=== PATIENT | female | born 1990 | race Caucasian/White ===

== ENCOUNTER 2018-04-09 03:33 | Emergency (ER) | payer BC, OTHER ==
[2018-04-09 03:40] VITALS: BP 138/103; PULSE 84; RESP 18; TEMP 98.3
[2018-04-09] MEDS ORDERED: PROPARACAINE 0.5% OPHTH DROPS 15 ML BTL LEFT EYE STA (03:56)
--- NOTE | 2018-04-09 07:17 | ED ---
Eye Problem HPI - General Chief complaint: ENT Stated complaint: Eye Pain Source: patient Mode of arrival: ambulatory Limitations: no limitations - History of Present Illness MD chief complaint: eye pain -: hour(s) Onset Description: gradual Location: left eye Place: work If Injury: none Eye Symptoms: foreign body sensation Severity: moderate If Pain, Quality: sharp Consistency: constant Associated Symptoms: none Treatments Prior to Arrival: none - Related Data Patient Tetanus UTD: Yes Home Medications Medication Instructions Recorded Confirmed [id number] 1 tab PO Q4HR PRN 11/03/15 11/03/15 [Excedrin] Fluticasone Nasal [place] [Flonase 1 spray EA NOSTRIL DAILY 11/03/15 11/03/15 Nasal [place]] Loratadine [Claritin] 10 mg PO DAILY 11/03/15 11/03/15 Multivitamins, Thera [Multivitamin] 1 tab PO DAILY 11/03/15 11/03/15 Allergies Allergy/AdvReac Type Severity Reaction Status Date / Time Pepper Allergy Swelling Verified 04/09/18 03:40 Review of Systems ROS Statement: Those systems with pertinent positive or pertinent negative responses have been documented in the HPI. ROS Other: All systems not noted in ROS Statement are negative. Past Medical History Past Medical History: Eye Disorder Additional Past Medical History / Comment(s): retinal tears migraines History of Any Multi-Drug Resistant Organisms: None Reported Past Surgical History: No Surgical Hx Reported Additional Past Surgical History / Comment(s): retinal surg Past Psychological History: No Psychological Hx Reported Smoking Status: Never smoker Past Alcohol Use History: None Reported Past Drug Use History: None Reported General Exam Limitations: no limitations General appearance: alert, in no apparent distress Head exam: Present: atraumatic, normocephalic Eye exam: Present: PERRL, EOMI, conjunctival injection. Absent: scleral icterus Expanded Eyelids: Normal Inspection: Right, Stye: Left Pupils: Regular, Round: Bilateral, Reactive: Bilateral Sclera/Conjunctival: Normal Inspection: Right, Injection: Left Anterior chamber: Normal Inspection: Left IOP (L) in mmH IOP measured with: other ([facility]) ENT exam: Present: normal oropharynx Skin exam: Present: warm, dry, intact, normal color. Absent: rash Course Vital Signs 04/09/18 04/09/18 03:36 07:39 Temperature 98.3 F 98.3 F Pulse Rate 84 84 Respiratory 18 18 Rate Blood Pressure 138/103 138/103 O2 Sat by Pulse 100 100 Oximetry Medical Decision Making - Medical Decision Making Patient is 27-year-old woman with left eye discomfort, without any visual acuity change. She is found to have stye. Discussed appropriate further care and follow-up. Started on antibiotic here. She understands she is not to wear contact lenses until cleared by the follow- up physician. Fluorescein stain does not reveal any corneal ulcer. Disposition Clinical Impression: Stye Disposition: HOME SELF-CARE Condition: Good Instructions: Stye (ED) Is patient prescribed a controlled substance at d/c from ED?: No Referrals: None,Stated [Primary Care Provider] - 1-2 days Joshua Carbajal MD [STAFF PHYSICIAN] - 1-2 days
[2018-04-09] MEDS ORDERED: traMADol 50 MG STARTER PACK 3 TAB BTL PO STA (07:19)
[2018-04-09] MEDS ORDERED: ERYTHROMYCIN 5 MG/GM OPHTH OINT 3.5 GM TUBE LEFT EYE SCH (07:30)
== END 2018-04-09 07:39 | disposition home or self-care (01) ==
LOC: EC 03:33
DX: H00.016 Hordeolum externum left eye, unspecified eyelid (principal); Z79.899 Other long term (current) drug therapy; Z91.018 Allergy to other foods
CPT/HCPCS: 99283

== ENCOUNTER → 2019-07-06 | Outpatient (CLI) | payer BC ==
--- NOTE | 2019-07-06 13:20 | USB ---
Reason for exam: clinical finding. Indicated problem(s): lump or thickening in the left breast. Physical Findings: Nurse Summary: Patient complains of left breast lump intermittent x 10 years (nurse mj). US Breast LT Left complete breast ultrasound includes all four quadrants, the retroareolar region and axilla. Finding demonstrates no cystic or solid lesion seen. No suspicious sonographic finding. Dense tisue throughout. These results were verbally communicated with the patient and result sheet given to the patient on 07/06/19. ASSESSMENT: Negative, BI-RAD 1 RECOMMENDATION: Routine screening mammogram of both breasts at age 38. (or sooner if clinically indicated) Manage patient on a clinical basis.
== END | disposition home or self-care (01) ==
LOC: RADUSWWP 11:41
PROVIDERS: ATTEND Family Medicine
DX: N63.21 Unspecified lump in the left breast, upper outer quadrant (principal)

== ENCOUNTER 2022-08-02 07:44 | Day surgery (SDC) | payer BC ==
--- NOTE | 2022-08-02 07:42 | P.GSHP ---
History of Present Illness H&P Date: 08/02/22 Chief Complaint: Incarcerated ventral hernia 31-year-old female here today for elective repair incarcerated ventral hernia. Mild discomfort there. Increasing in size. BMI 25. Past Medical History Past Medical History: Eye Disorder, GERD/Reflux, Osteoarthritis (OA) Additional Past Medical History / Comment(s): retinal tears left-had lasering, migraines History of Any Multi-Drug Resistant Organisms: None Reported Past Surgical History: No Surgical Hx Reported Additional Past Surgical History / Comment(s): retinal surg Additional Past Anesthesia/Blood Transfusion Reaction / Comment(s): no family problems w/anesthesia Smoking Status: Never smoker - Past Family History Mother Family Medical History: Deep Vein Thrombosis (DVT) Additional Family Medical History / Comment(s): ITP Father Family Medical History: Deep Vein Thrombosis (DVT) Medications and Allergies Home Medications Medication Instructions Recorded Confirmed Type [id number] 1 tab PO Q4HR PRN 11/03/15 07/27/22 History [Excedrin] Fluticasone Nasal [place] [Flonase 1 spray EA NOSTRIL DAILY 11/03/15 07/27/22 History Nasal [place]] Albuterol Inhaler [Ventolin Hfa 1 - 2 puff INHALATION Q6H PRN 07/27/22 07/27/22 History Inhaler] Erenumab-Aooe [Aimovig 140 mg SQ Q30D 07/27/22 07/27/22 History Autoinjector] Topiramate [Topamax] 50 mg PO BID 07/27/22 07/27/22 History Allergies Allergy/AdvReac Type Severity Reaction Status Date / Time pimentel pepper Allergy throat Uncoded 07/27/22 12:58 irritation, skin irritation, swelling Surgical - Exam Physical exam: General: Well-developed, well-nourished HEENT: Normocephalic, sclerae nonicteric Abdomen: Nontender, nondistended, incarcerated ventral hernia Extremities: No edema Neuro: Alert and oriented Assessment and Plan (1) Incarcerated ventral hernia Narrative/Plan: 31-year-old female with incarcerated ventral hernia. We'll proceed with open repair incarcerated ventral hernia with possible mesh. Risks of bleeding, infection, recurrence, bladder and bowel injury, numbness, nerve injury were discussed with the patient. The patient understands and wishes to proceed. Status: Acute Code(s): K43.6 - OTHER AND UNSP VENTRAL HERNIA WITH OBSTRUCTION, W/O GANGRENE SNOMED Code(s): 942732448
[~2022-08-02 07:44] MED LIST: ACETAMINOPHEN TAB 500 MG TAB PO PRN; HEPARIN SODIUM,PORCINE/PF 5,000 UNIT/0.5 ML SYRINGE SQ PRN
[2022-08-02] MEDS ORDERED: DEXAMETHASONE SOD PHOSPHATE 4 MG/ML 1 ML VIAL IV ONE (07:52)
[2022-08-02] MEDS ORDERED: ONDANSETRON 4 MG/2 ML VIAL IVP ONE ×2 (07:52→10:12)
[2022-08-02] MEDS ORDERED: HYDROmorphone 0.5 MG/0.5 ML SYRINGE IVP PRN (07:52)
[2022-08-02] MEDS ORDERED: SCOPOLAMINE 1 MG/72 HR PATCH TRANSDERM ONE (07:52)
[2022-08-02] MEDS ORDERED: MIDAZOLAM 2 MG/2 ML VIAL IV PRN (07:52)
[2022-08-02] MEDS: LACTATED RINGERS 1,000 ML IV SCH ×2 (08:26→10:25)
[2022-08-02] MEDS ORDERED: ROCURONIUM 10 MG/ML (5 ML VIAL) IV ONE (09:09)
[2022-08-02] MEDS ORDERED: MIDAZOLAM 2 MG/2 ML VIAL ONE (09:09)
[2022-08-02] MEDS ORDERED: PROPOFOL 10 MG/ML 20 ML VIAL IV ONE (09:09)
[2022-08-02] MEDS ORDERED: LIDOCAINE 2% INJ 20 MG/ML (2 ML VIAL) ONE (09:09)
[2022-08-02] MEDS ORDERED: fentaNYL (PF) 50 MCG/ML 2 ML AMP ONE (09:09)
[2022-08-02] MEDS ORDERED: GLYCOPYRROLATE 0.2 MG/ML 2 ML VIAL ONE (09:09)
[2022-08-02] MEDS ORDERED: SUCCINYLCHOLINE CHLORIDE 200 MG/10 ML VIAL IV ONE (09:09)
[2022-08-02] MEDS ORDERED: NEOSTIGMINE 1 MG/ML 10 ML VIAL ONE (09:09)
[2022-08-02] MEDS ORDERED: BUPIVACAINE (PF) 0.25% 30 ML VIAL SQ ONE ×2 (09:29→09:52)
[2022-08-02 10:13] VITALS: RESP 16; TEMP 96.8
[2022-08-02] MEDS ORDERED: traMADol 50 MG TAB PO STA (10:43)
[2022-08-02] MEDS ORDERED: traMADol 50 MG TAB PO ONE (11:05)
[2022-08-02 11:25] VITALS: PULSE 59
[2022-08-02 11:27] VITALS: BP 111/73
--- NOTE | 2022-08-02 11:54 | P.OP ---
Date of Procedure: 08/02/22 Procedure(s) Performed: PREOPERATIVE DIAGNOSIS: Incarcerated ventral hernia POSTOPERATIVE DIAGNOSIS: Same PROCEDURE: Open repair incarcerated ventral hernia SURGEON: Dr. Kingston ANESTHESIA: General OPERATIVE PROCEDURE DETAILS: Patient placed on the operating table in the supine position. Abdomen was prepped and draped in usual sterile fashion. A vertical incision was then made superior to the umbilicus. Dissection through the subcutaneous tissues took place using electrocautery. The patient had a sin gle incarcerated hernia in the supraumbilical location. The defect was probably 2-3 cm superior to the umbilicus. The defect was quite small measuring only 4-5 mm in diameter. The fat was removed using electrocautery. The defect was closed using 3 separate interrupted 0 Ethibond sutures. No mesh was utilized. The subcutaneous tissues were closed using 3-0 Vicryl sutures. The skin was closed using a running 4-0 Monocryl suture. Skin glue and sterile dressings were applied. HERNIA CHARACTERISTICS: Length: 4 mm Width: 4 mm Type: Incarcerated ventral TYPE OF MESH USED: None PREOPERATIVE DISCUSSION ON SMOKING CESSASTION: Yes PREOPERATIVE DISCUSSION ON MORBID OBESITY: Yes PREOPERATIVE DISCUSSION ON APPROPRIATE USE OF NARCOTIC USE: Yes PREOPERATIVE EDUCATION: Multi Modal, Smoking Cessation and Weight Loss with BMI over 35. DISPOSITION: Stable to recovery room
[2022-08-02] MEDS ORDERED: ACETAMINOPHEN TAB 325 MG TAB PO SCH (12:00)
[2022-08-02] MEDS ORDERED: IBUPROFEN 600 MG TAB PO SCH (13:45)
== END 2022-08-02 11:46 | disposition home or self-care (01) ==
LOC: OR 07:44
PROVIDERS: ATTEND Surgery
DX: K43.9 Ventral hernia without obstruction or gangrene (principal); K21.9 Gastro-esophageal reflux disease without esophagitis; M19.90 Unspecified osteoarthritis, unspecified site; G43.909 Migraine, unspecified, not intractable, without status migrainosus; Z79.899 Other long term (current) drug therapy; Z79.51 Long term (current) use of inhaled steroids; Z68.25 Body mass index [BMI] 25.0-25.9, adult
CPT/HCPCS: 81025; 49592; J2250; J0330; J1100; J2710; J0690; J2405; J3010; J2704; J2001; 88302